=== PATIENT | female | born 1960 | race Caucasian/White ===

== ENCOUNTER 2016-06-29 01:53 | Inpatient (IN) | payer OTHER ==
[~2016-06-29] VITALS: Ht 165.1 cm; Wt 72.6 kg
[~2016-06-29 01:53] MED LIST: CYMBALTA60 M1 PO; DIOVAN80 M1 PO; INDERAL LA80 M1 PO; KLONOPIN0.5 M1 PO; LIPITOR20 M2 PO; LYRICA150 M1 PO; OMEPRAZOLE20 M2 PO
[2016-06-29] MEDS ORDERED: ULTRAM50 M1 PO (11:19)
[2016-06-29] MEDS ORDERED: DILAUDID4 M1 PO (13:38)
[2016-06-29] MEDS ORDERED: ASPIRIN325 M2 PO (13:38)
[2016-06-29] MEDS ORDERED: MS CONTIN15 M2 PO (13:38)
[2016-06-29] MEDS ORDERED: COLACE100 M1 PO (13:38)
[2016-06-29] MEDS ORDERED: MIRALAX17 G1 PO (13:38)
--- NOTE | 2016-06-29 13:41 | Patient Discharge Instructions ---
Discharge Instructions General Discharge Information You were seen/treated for: Left knee degenerative joint disease You had these procedures: Left total knee arthroplasty Watch for these problems: Significantly increased pain or difficulty bearing weight. Increased redness or drainage from incision Temperature over 101 No bath, but you may shower: Yes Other wound care: Daily dry dressing change Special Instructions: See printed information sheet Diet Continue normal diet: Yes Activity Activity Self Limited: Yes Other activity limits: Ambulate per physical therapy recommendations Do not drive for operate heavy machinery until seen by your surgeon Acute Coronary Syndrome Inclusion Criteria At DC or during hospital stay patient has or had the following: ACS DIAGNOSIS No Discharge Core Measures Meds if any: Prescribed or Continued at Discharge Meds if any: NOT Prescribed or Continued at Discharge Congestive Heart Failure Inclusion Criteria At DC or during hospital stay patient has or had the following: CHF DIAGNOSIS No Discharge Core Measures Meds if any: Prescribed or Continued at Discharge Meds if any: NOT Prescribed or Continued at Discharge Cerebrovascular accident Inclusion Criteria At DC or during hospital stay patient has or had the following: CVA/TIA Diagnosis No Discharge Core Measures Meds if any: Prescribed or Continued at Discharge Meds if any: NOT Prescribed or Continued at Discharge Venous thromboembolism Inclusion Criteria VTE Diagnosis No VTE Type NONE VTE Confirmed by (Test) NONE Discharge Core Measures - Per Current guidelines, there needs to be overlap - treatment for the first 5 days of Warfarin therapy. - If discharged on Warfarin prior to 5 days of - overlap therapy, the patient will need to be - assessed for post discharge needs including - *Post discharge parental anticoagulation - *Warfarin and/or parental anticoagulation education - *Follow up date to check INR post discharge At least 5 days overlap therapy as Inpatient No Meds if any: Prescribed or Continued at Discharge Note: Overlap Therapy is Warfarin and Anticoagulant Meds if any: NOT Prescribed or Continued at Discharge
--- NOTE | 2016-06-29 13:45 | Admission Core Measures ---
Admission Meds I reviewed the following Meds: Current Medications Sig/Sadaf Start time Last Medication Dose Stop Time Status Admin Acetaminophen 975 MG ONE 06/29 NR (Tylenol) 06/29 2358 Cefazolin Sodium 2,000 MG ONE 06/29 NR (Kefzol-Ancef Inj) 06/29 2358 Oxycodone HCl 10 MG ONE 06/29 AC (Roxicodone) 06/29 2358 Ropivacaine 500 ML ONCE ONE 06/29 123 AC (NAROPIN) 07/01 06 ON-Q Ball 1 BAG Acute Coronary Syndrome Inclusion Criteria ACS Diagnosis No Inpatient Core Measures LDL Reminder: If No, please order W/I first 24hr of stay Congestive Heart Failure Inclusion Criteria CHF Diagnosis No Cerebrovascular accident Inclusion Criteria CVA/TIA Diagnosis No Inpatient Core Measures Bedside Swallow Eval Reminder: If BSE failed, place ST order Antithrombotic Reminder: Order Antithrombotic Medication by end of day 2 Antithrombotic Reminder: Document Reason Antithrombotic Not ordered by end of day 2 AFIB/Flutter Reminder: If Present, add to problem list AFIB/Flutter Reminder: Order Anticoag Medication for pts with AFIB/Flutter Atherosclerosis Reminder: If Present, add to problem list LDL Reminder: If No, please order W/I first 24hr of stay PT Order Reminder: If No, please order Venous thromboembolism Inpatient Core Measures VTE Risk Factors: Age > 40, Surgery No [facility] VTE prophylaxis d/t No contraindications No VTE Pharm Prophylaxis d/t No contraindications Inclusion Criteria - Per Current guidelines, there needs to be overlap - treatment for the first 5 days of Warfarin therapy. - Parenteral Anticoagulation (IV or SC) needs to be - given along with Warfarin therapy. VTE Diagnosis No VTE Type NONE VTE Confirmed by (Test) NONE Problem List As ranked by this Provider includes Assessment & Plan 1. S/P total knee arthroplasty HOME MEDS Home Med List Aspirin (Aspirin*) 325 MG TABLET 1 TAB PO BID BLOOD THINNER Atorvastatin Calcium (Lipitor) 20 MG TABLET 1 TAB PO DAILY CHOLESTEROL ( Reported) Clonazepam (Klonopin) 0.5 MG TABLET 1 TAB PO NIGHTLY SLEEP (Reported) Docusate Sodium (Colace) 100 MG CAPSULE 1 CAP PO BID CONSTIPATION Duloxetine HCl (Cymbalta) 60 MG CAPSULE.DR 1 TAB PO QHS DEPRESSION (Reported) Hydromorphone HCl (Dilaudid) 4 MG TABLET 1-2 TAB PO Q4-6P PRN PAIN Morphine Sulfate (Ms Contin) 15 MG TABLET.ER 1 TAB PO BID PAIN Omeprazole 20 MG CAPSULE.DR 20 MG PO D GERD (Reported) Polyethylene Glycol 3350 (Miralax) 17 GRAM POWD.PACK 1 PAC PO DAILY CONSTIPATION Pregabalin (Lyrica) 150 MG CAPSULE 150 MG PO BID MIGRAINE (Reported) Propranolol LA (Inderal LA) 80 MG CAP.SA.24H 1 TAB PO D HTN / MIGRAINE ( Reported) Tramadol HCl (Ultram) 50 MG TABLET 1 TAB PO EVERY 6-8HRS PRN PAIN (Reported) Valsartan (Diovan) 80 MG TABLET 1 TAB PO D HTN (Reported)
--- NOTE | 2016-06-29 13:48 | Surg Short-stay <48hrs Dis Sum ---
Visit Information Visit Dates Admission Date: 06/29/16 Discharge Date: 07/02/16 Surgical Short Stay DC Summary Admission Diagnosis: Left knee degenerative joint disease Final Diagnosis: Same Procedure(s): Left total knee arthroplasty Summary/Significant Findings: The patient was admitted on 06/29/2016. She was brought to the operating theater and underwent a left total knee arthroplasty. Postoperatively the patient progressed as expected and her pain was under adequate control. The patient worked with physical therapy, voided, and tolerated diet. She was discharged with an uneventful hospital course. Condition at Discharge: Stable Discharge Disposition: home health services Discharge instructions provided to patient/family: Yes Post discharge follow-up plan: Call the office to be seen in 6 weeks or earlier if need be.
--- NOTE | 2016-06-29 15:08 | Operative Report ---
Operative/Inv Procedure Report Surgery Date: 06/29/16 Name of Procedure: 1. Left total knee replacement 2. Right knee cortisone injection Pre-Operative Diagnosis: Primary bilateral knee DJD Post-Operative Diagnosis: Same Estimated Blood Loss: 50ml to 100ml Surgeon/Pure Pak Machine Operator: JUMANA DIALLO,CATHERINE Lebron Anesthesia: block Operative/Procedure Note Note: Description of Procedure: The patient was taken to the operating room and positively identified. After induction of spinal anesthesia and administration of appropriate pre-operative antibiotics, the patient was positioned supine on the operating room table and all bony prominences were well padded. The right knee was prepped sterilely and injected with a mixture of 2 mL of Depo -Medrol and 8 mL of half percent Marcaine. A Band-Aid was placed over the injection site. Attention was then turned to the contralateral limb. A well-padded pneumatic tourniquet was placed on the left upper thigh. After performing a surgical timeout, the left lower extremity was prepped and draped in the usual sterile fashion. After exsanguination with Esmarch the tourniquet was inflated to 250mm of mercury. A standard medial parapatellar approach was made to the knee. This was carried down through skin and subcutaneous tissue to the level of the fascia. Meticulous hemostasis was maintained with Bovie electrocautery. The extensor mechanism and patellar retinaculum were opened sharply and the patella was everted. The infrapatellar fat was resected in order to improve exposure. Osteophytes were trimmed from the patella and femoral condyles and the patella was re-everted and tucked laterally. A medial release was performed and the cruciate ligaments were resected. The tibia was then subluxed anteriorly. Utilizing the appropriate extra-medullary guide, the proximal tibia was trimmed perpendicular to the long axis of the tibial shaft. Attention was then turned to the femur. After opening the medullary canal, the distal femoral cut was made in 6 degrees of valgus utilizing the appropriate intra-medullary guide. The extension gap was checked and found to be appropriate. The femur was then sized and the remainder of the femoral cuts were made with a size 4 4-in-1 femoral cutting guide. The flexion gap was checked and found to be symmetric and appropriate. The knee was then trialed with a size 4 femoral component, a size 3 tibial component and a size 9 mm polyethylene insert. The patella was trimmed to accept an A 32 patella. This yielded excellent range of motion, stability and patellar tracking. All trial components were removed and the knee was copiously irrigated with sterile saline. All components were cemented into place with Colbert Simplex cement. All the components were of the [place] [employer] knee system of the above stated sizes. The knee was again irrigated after cementation. The extensor mechanism and patellar retinaculum were repaired using interrupted #1 vicryl suture. The skin was re-approximated with 2-0 vicryl and closed with toña. A sterile dressing was applied, the tourniquet was deflated, the patient was awakened and taken to the recovery room in satisfactory condition.
[2016-06-29 17:00] VITALS: BP 118/70
--- NOTE | 2016-06-29 18:50 | NUR ---
1800: RECEIVED PT FROM PACU AT 1700. A+OX3. ON RA. VSS. AFEBRILE. LUNGS CLEAR. DENIES SOB OR CHEST PAIN. ABDOMEN SOFT, HYPOACTIVE BOWEL SOUNDS, DENIES NAUSEA. AQUINO IN PLACE DRAINING CLEAR YELLOW URINE, TO BE REMOVED IN AM. ALPS IN PLACE. DRESSING TO LEFT KNEE CLEAN DRY AND INTACT, +CMS, PT ABLE TO MOVE TOES. ON Q PUMP TO LEFT ADDUCTOR 7CM AT 12ML. SITE CLEAN DRY AND INTACT, CLAMP OPEN. #20 RH WITH D5 1/2NS INFUSING AT 75ML/HR. PT HAS GLASSES, CELL PHONE AND WHITE PHONE CLASSROOM INSTRUCTIONAL AIDE WITH HER. ORIENTED TO ROOM AND CALL MATT. DINNER ORDERED. WILL MONITOR.
[2016-06-29 20:18] VITALS: BP 136/78
--- NOTE | 2016-06-29 20:53 | Event Note ---
Event Note Event Note: patient states she does not want to take dilaudid and wants percocet. she took it two years ago and had no problems taking it
[2016-06-29 22:15] VITALS: BP 132/82
[2016-06-30 00:11] VITALS: BP 138/71
[2016-06-30 03:48] VITALS: BP 127/63
--- NOTE | 2016-06-30 07:21 | PN- Orthopedic ---
Subjective Subjective: The patient was seen this morning postoperatively day #1. She reports that her pain is under adequate control with current pain regiment and has no other complaints at the current time. Objective Vital Signs and I&Os Vital Signs Date Time Temp Pulse Resp B/P Pulse O2 O2 Flow FiO2 Ox Delivery Rate 06/30 0348 97.8 75 20 127/63 94 Room Air / 0011 98.0 74 20 138/71 93 Room Air 06/29 2215 78 20 132/82 93 Room Air 06/29 2107 Room Air Room Air 06/29 2017 98.2 82 20 136/78 94 Room Air / 1700 98.0 64 18 118/70 96 Room Air Intake & Output 06/30 0806/30 0000 / 1600 06/29 0800 06/29 0000 / 1600 Intake Total 1080 705 Output Total 1075 1500 Balance 5 -795 Intake, IV 600 225 Intake, Oral 480 480 Output, Urine 1075 1500 Patient 160 lb Weight Physical Exam: Gen.: Alert and in no obvious distress Skin: Warm and dry Extremities: Bilateral lower extremities are warm without calf tenderness or significant edema. Gross motor and sensory are intact. Left knee surgical dressing is clean, dry, and intact. There is an On-Q pain pump in place. Assessment/Plan Assessment/Plan Assessment: 55-year-old female status post left total knee arthroplasty postoperative day #1. The patient is progressing as expected and her pain is under adequate control. Plan: Follow-up morning laboratory studies Hep-Lock IV fluids and DC Stack catheter Continue current pain regiment Out of bed with physical therapy patient is weightbearing as tolerated GI and DVT prophylaxis Incentive spirometry Core Measures/Miscellaneous Venous Thromboembolism VTE Risk Factors: Age > 40, Surgery VTE Contraindications: No Contraindications VTE Diagnosis: No VTE Type: NONE VTE Confirmed by (Test): NONE Beta Raya Is Beta Raya a Home Med? Yes If Yes, Was This Ordered Today? Yes Antibiotics Is Patient on Antibiotics? No
[2016-06-30 08:08] VITALS: BP 138/70
[2016-06-30 08:12] LABS: ABSOLUTE BASOPHIL COUNT 0 /CUMM (0.0-0.2); ABSOLUTE EOSINOPHIL COUNT 0 /CUMM (0.0-0.7); ABSOLUTE LYMPH COUNT 0.8 /CUMM (1.2-3.4); ABSOLUTE MONOCYTE COUNT 0.7 /CUMM (0.10-0.60); BASOPHIL % 0 % (0.0-2.0); EOSINOPHIL % 0 % (0-5); HEMATOCRIT 34.4 % (37-47); MEAN CORPUSCULAR HGB 28.7 PG (27.0-31.0); MEAN CORPUSCULAR HGB CONC 33.2 G/DL (33.0-37.0); MEAN CORPUSCULAR VOLUME 86.6 FL (81.0-99.0); MEAN PLATELET VOLUME 8.9 FL (7.4-10.4); PLATELET COUNT 286 /CUMM (130-400); RBC DISTRIBUTION WIDTH 13.6 % (11.5-14.5); RED BLOOD CELL CT 3.97 /CUMM (4.20-5.40); WHITE BLOOD CELL COUNT 15.6 /CUMM (4.8-10.8)
[2016-06-30 09:21] LABS: GRANULOCYTE % 90.2 % (42.2-75.2)
[2016-06-30 14:32] VITALS: BP 124/60
[2016-06-30 22:00] VITALS: BP 128/78
[2016-07-01 07:09] VITALS: BP 118/67
--- NOTE | 2016-07-01 07:29 | PN- Orthopedic ---
Subjective Subjective: POD#2 S/P LEFT TKA COMFORTABLE, NO MAJOR COMPLAINTS DENIES CP, SOB, NO N+V WITH DIET AMBULATING WITH PT WELL Objective Vital Signs and I&Os Vital Signs Date Time Temp Pulse Resp B/P Pulse O2 O2 Flow FiO2 Ox Delivery Rate / 0709 97.6 70 20 118/67 94 Room Air / 2200 98.0 68 18 128/78 96 Room Air / 1432 98.6 76 20 124/60 96 Room Air / 0940 75 127/63 03/ 0939 75 127/63 03/ 0808 97.3 60 20 138/70 94 Room Air Intake & Output / 0800 03/08 0000 03/07 1600 / 0800 / 0000 / 1600 Intake Total 120 547 025 0142 705 Output Total 300 1075 1500 Balance -180 240 900 5 -795 Intake, IV 600 225 Intake, Oral 120 240 900 480 480 Output, Urine 300 1075 1500 Patient 160 lb Weight Physical Exam: CV: RRR LUNGS: CLEAR ABD: SOFT, +BS EXT: DRSG CHANGED, WOUND C/D/I NO CALF TENDERNESS BILAT DISTAL CMS INTACT Assessment/Plan Assessment/Plan ORTHO STABLE PLAN OOB WITH PT/STAIRS ASA FOR DVT PROPHYLAXIS HOME D/C PLANNING Core Measures/Miscellaneous Venous Thromboembolism VTE Risk Factors: Age > 40, Surgery VTE Contraindications: No Contraindications VTE Diagnosis: No VTE Type: NONE VTE Confirmed by (Test): NONE Beta Raya Is Beta Raya a Home Med? Yes If Yes, Was This Ordered Today? Yes Antibiotics Is Patient on Antibiotics? No
[2016-07-01 08:15] LABS: ABSOLUTE BASOPHIL COUNT 0 /CUMM (0.0-0.2); ABSOLUTE EOSINOPHIL COUNT 0.1 /CUMM (0.0-0.7); ABSOLUTE LYMPH COUNT 1.4 /CUMM (1.2-3.4); ABSOLUTE MONOCYTE COUNT 0.8 /CUMM (0.10-0.60); BASOPHIL % 0.3 % (0.0-2.0); EOSINOPHIL % 0.6 % (0-5); GRANULOCYTE % 77.3 % (42.2-75.2); HEMATOCRIT 32.2 % (37-47); MEAN CORPUSCULAR HGB 28.5 PG (27.0-31.0); MEAN CORPUSCULAR HGB CONC 33.1 G/DL (33.0-37.0); MEAN CORPUSCULAR VOLUME 86.2 FL (81.0-99.0); MEAN PLATELET VOLUME 8.7 FL (7.4-10.4); PLATELET COUNT 252 /CUMM (130-400); RED BLOOD CELL CT 3.73 /CUMM (4.20-5.40); WHITE BLOOD CELL COUNT 10.4 /CUMM (4.8-10.8)
[2016-07-01 09:00] VITALS: BP 128/70
[2016-07-01 22:32] VITALS: BP 128/68
--- NOTE | 2016-07-02 07:20 | PN- Orthopedic ---
Subjective Subjective: The patient was seen this morning postoperatively day #3. She reports having good night sleep and that her pain is under adequate control. She had no other complaints at the current time and is eager to go home this morning. Objective Vital Signs and I&Os Vital Signs Date Time Temp Pulse Resp B/P Pulse O2 O2 Flow FiO2 Ox Delivery Rate 07/02 2231 99.1 70 20 128/68 94 Room Air 07/01 917 64 128/70 07/01 916 64 128/70 07/01 899 64 18 128/70 97 Room Air Intake & Output 07/02/ 0000 / 1600 07/01/ 0000 / 1600 Intake Total 480 650 500 120 240 900 Output Total 300 Balance 480 650 500 -180 240 900 Intake, Oral 480 650 500 120 240 900 Output, Urine 300 Physical Exam: Gen.: Alert and in no obvious distress Skin: Warm and dry Extremities: Bilateral lower extremities are warm without calf tenderness or significant edema. Gross motor and sensory are intact. Left knee surgical dressing is clean, dry, and intact without signs of infection. There are surgical clips in place. Assessment/Plan Assessment/Plan Assessment: 55-year-old female status post left total knee arthroplasty postoperative day #3. The patient is progressing as expected, she is ambulating adequately with physical therapy, and her pain is under adequate control. Plan: Continue to work with physical therapy Aspirin twice a day GI and DVT prophylaxis Continue current pain regiment Discharge home later today. Core Measures/Miscellaneous Venous Thromboembolism VTE Risk Factors: Age > 40, Surgery VTE Contraindications: No Contraindications VTE Diagnosis: No VTE Type: NONE VTE Confirmed by (Test): NONE Beta Raya Is Beta Raya a Home Med? Yes If Yes, Was This Ordered Today? Yes Antibiotics Is Patient on Antibiotics? No
[2016-07-02 07:30] VITALS: BP 130/88
[2016-07-02 09:45] VITALS: BP 112/64
== END 2016-07-02 11:00 | disposition home health service (06) | DRG 470 ==
LOC: ENRESERVTM → CANRESERV → ENRESERVDT → SDA 01:53 → UNDOADMIN 01:53 → 2NB 15:22 → ENPENDDIS 15:22 → SDA 15:22 → 2NB 17:05
PROVIDERS: Physician Assistant Surgical; ADMIT Orthopaedic Surgery
PROC: 0SRD0J9 Replacement of Left Knee Joint with Synthetic Substitute, Cemented, Open Approach (ICD-10-PCS; principal; 2016-06-29)
PROC: 3E0U33Z Introduction of Anti-inflammatory into Joints, Percutaneous Approach (ICD-10-PCS; principal; 2016-06-29)
DX: M17.0 Bilateral primary osteoarthritis of knee (principal); I10 Essential (primary) hypertension; R73.9 Hyperglycemia, unspecified; E78.5 Hyperlipidemia, unspecified; F32.9 Major depressive disorder, single episode, unspecified
CPT/HCPCS: 82436; 88305; 97110-GO; 97116-GO; 97161-GP; 97530-GO; C1713; J0131; J0690; J2405; J2795; J7042